=== PATIENT | male | born 1995 | race Caucasian/White ===

== ENCOUNTER 2017-04-05 19:44 | Emergency (ER) | payer OTHER ==
[~2017-04-05] VITALS: Ht 190.5 cm; Wt 101.2 kg
[~2017-04-05 19:44] MED LIST: AMOX TR-K CLV1 EAC4 PO; AUGMENTIN875 MG PO; FLONASE ALLERG9.9 ML BOTH NARES; MOTRIN800 MG PO; PREDNISONE10 MG PO; SUDAFED 12-HOU120 MG PO; TESSALON200 MG PO; ZITHROMAX250 MG PO
[2017-04-06] MEDS ORDERED: NAPROSYN500 MG PO (00:37)
[2017-04-06] MEDS ORDERED: AUGMENTIN875 MG PO (00:37)
[2017-04-06 00:46] VITALS: BP 135/74
== END 2017-04-06 00:54 | disposition home or self-care (01) ==
LOC: EME 19:44
PROC: 0CQ0XZZ Repair Upper Lip, External Approach (ICD-10-PCS; principal; 2017-04-05)
DX: S01.511A Laceration without foreign body of lip, initial encounter (principal); W51.XXXA Accidental striking against or bumped into by another person, initial encounter; Y93.67 Activity, basketball
CPT/HCPCS: 99281; 99284

== ENCOUNTER 2017-11-25 21:00 | Emergency (ER) | payer OTHER ==
[~2017-11-25] VITALS: Ht 190.5 cm; Wt 105.9 kg
[~2017-11-25 21:00] MED LIST changes: +NAPROSYN500 MG PO
[2017-11-25 21:16] VITALS: BP 137/78
[2017-11-25] MEDS ORDERED: KEFLEX500 MG PO (22:57)
[2017-11-25] MEDS ORDERED: BACTRIM,SEPT1 TABLET PO (22:57)
== END 2017-11-25 23:25 | disposition home or self-care (01) ==
LOC: EME 21:00
DX: L03.115 Cellulitis of right lower limb (principal); S91.001A Unspecified open wound, right ankle, initial encounter; W57.XXXA Bitten or stung by nonvenomous insect and other nonvenomous arthropods, initial encounter
CPT/HCPCS: 87070; 87075; 87077; 87147; 87186; 87205; 99281; 99284